=== PATIENT | female | born 1955 | race Caucasian/White ===

== ENCOUNTER 2017-07-30 12:52 | Emergency (ER) | payer BC, OTHER ==
[~2017-07-30] VITALS: Ht 167.6 cm; Wt 79.4 kg
--- NOTE | ~2017-07-30 | EKG ---
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
--- NOTE | ~2017-07-30 | EKG ---
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
--- NOTE | ~2017-07-30 | EKG ---
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 : 1955 Requested By: Ewa Ochoa Order Number: [id number] MD: Amando Feliciano Measurements Intervals [place] Rate: 85 P: 13 [place]: 167 QRS: 17 QRSD: 103 T: 1 QT: 370 QTc: 440 Interpretive Statements Sinus rhythm Borderline repolarization abnormality Baseline wander in lead(s) V4 No previous ECG available for comparison Electronically Signed On 08-01-2017 13:28:43 CDT by Amando Feliciano [email or web address] <ELECTRONICALLY SIGNED> By: Amando Feliciano MD, [facility] 08/01/17 1328 1306 1306 Amando Feliciano MD, FACC /EPI
[2017-07-30] MEDS ORDERED: AMITRIPTYLINE H50 M4 PO (13:07)
[2017-07-30] MEDS ORDERED: TOPROL XL25 MG PO (13:07)
[2017-07-30] MEDS ORDERED: TRAMADOL 50 MG50 MG PO (13:07)
[2017-07-30 13:08] LABS: ABSOLUTE NEUTROPHILS 4.5 thou/uL (1.4-8.2); BASOPHILS 0.5 % (0.0-2.0); EOSINOPHILS 1.4 % (0.0-3.0); HEMATOCRIT 45.5 % (37.0-47.0); LYMPHOCYTES 35.6 % (24.0-44.0); MCH 29.1 pg (26.0-34.0); MCHC 32.9 g/dL (28.0-37.0); MCV 88.5 fL (80.0-100.0); PLATELET COUNT 210 thou/uL (150-400); POLYS 55.5 % (36.0-66.0); RBC 5.14 mil/uL (4.20-5.00); RDW 12.9 % (10.5-14.5); WBC 8.2 thou/uL (4.0-11.0)
[2017-07-30] MEDS ORDERED: FLONASE 0.05%50 MCG NASAL (13:08)
[2017-07-30] MEDS ORDERED: CYMBALTA60 MG PO (13:08)
[2017-07-30] MEDS ORDERED: MIRALAX17 GM PO (13:08)
[2017-07-30] MEDS ORDERED: CLONAZEPAM 0.50.5 M1 PO (13:08)
[2017-07-30 13:10] LABS: MANUAL DIFF NO
[2017-07-30 13:17] LABS: CALCIUM 9.9 mg/dL (8.5-10.1); CREATININE 0.9 mg/dL (0.6-1.0); POTASSIUM 3.8 mmol/L (3.5-5.1)
[2017-07-30 13:50] VITALS: BP 102/78
== END 2017-07-30 13:32 | disposition home or self-care (01) ==
LOC: ER 12:52
PROVIDERS: Emergency Medicine
DX: I47.1 Supraventricular tachycardia (principal); F17.210 Nicotine dependence, cigarettes, uncomplicated